=== PATIENT | male | born 1975 | race Caucasian/White ===

== ENCOUNTER 2023-09-11 08:29 | Day surgery (SDC) | payer OTHER ==
[~2023-09-11] VITALS: Ht 182.9 cm; Wt 170.1 kg
[2023-09-11] MEDS ORDERED: LIDOCAINE 2% 100 MG/5 ML UJET TP ONE (09:25)
[2023-09-11] MEDS ORDERED: fentaNYL citrate 0.05 MG/ML VIAL ONE (09:25)
== END 2023-09-11 10:50 | disposition home or self-care (01) ==
LOC: MDS 08:29 → MMU 08:32 → MDS 10:50
PROVIDERS: ATTEND Internal Medicine Gastroenterology
DX: Z12.11 Encounter for screening for malignant neoplasm of colon (principal); K63.5 Polyp of colon; K57.30 Diverticulosis of large intestine without perforation or abscess without bleeding; I10 Essential (primary) hypertension; E11.9 Type 2 diabetes mellitus without complications; J45.909 Unspecified asthma, uncomplicated; E66.9 Obesity, unspecified; G47.30 Sleep apnea, unspecified; Z90.49 Acquired absence of other specified parts of digestive tract; Z88.0 Allergy status to penicillin; Z88.1 Allergy status to other antibiotic agents; Z79.84 Long term (current) use of oral hypoglycemic drugs; Z79.82 Long term (current) use of aspirin; Z79.899 Other long term (current) drug therapy; Z99.89 Dependence on other enabling machines and devices; Z80.0 Family history of malignant neoplasm of digestive organs; Z68.43 Body mass index [BMI] 50.0-59.9, adult
CPT/HCPCS: 45385; 82948; J3010